=== PATIENT | female | born 1960 | race Caucasian/White ===

== ENCOUNTER 2017-10-11 06:32 | Emergency (ER) | payer OTHER ==
[~2017-10-11] VITALS: Ht 172.7 cm; Wt 63.5 kg
[~2017-10-11 06:32] MED LIST: ALPR0.5T3 PO; CITA20TA4 PO; ESTR2TAB PO
[2017-10-11 06:33] VITALS: BP 177/84; PULSE 104; RESP 16; TEMP 98.2; O2SAT 98
--- NOTE | 2017-10-11 07:26 | PD ---
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 Patient states she believes it was wet on the stairs which caused her to lose her balance and slipped. Patient states she did not hit her head or have loss of consciousness. She did land on her backside, with pain to the upper middle buttocks, and lumbar and lower thoracic spine. She denies weakness, tingling, or radicular pain. Her pain is currently 6 out of 10. She has no other complaints. She is allergic to medroxyprogesterone. PFSH Past Medical History Blood Disorders: No Depression: Yes Cancer: Yes (ENDOMETRIAL) Cardiovascular Problems: No Endocrine: No Gastrointestinal Disorders: No Genitourinary: No Immune Disorder: No Musculoskeletal: No Neurologic: No Psychiatric: No Reproductive: No Respiratory: No Immunizations Current: Yes Radiation Therapy: Yes (hx) Tetanus Vaccination: < 5 Years Influenza Vaccination: Yes Past Surgical History AICD: No Appendectomy: Yes Arteriovenous Shunt: No Gynecologic Surgery: Yes (ENDOMETRIAL [place] FOLLOWED W RADIATION) Hysterectomy: Yes Insulin Pump: No Joint Replacement: No Pacemaker: No Other Surgery: No Social History Alcohol Use: Yes (socially) Tobacco Use: No Substance Use: No Allergies-Medications (Allergen,Severity, Reaction): Coded Allergies: medroxyprogesterone (Unverified Allergy, Severe, 04/09/17) Reported Meds & Prescriptions Reported Meds & Active Scripts Active Reported Estradiol 2 Mg Tab 2 Mg PO Alprazolam 0.5 Mg Tab 0.5 Mg PO BID Citalopram Hydrobromide 20 Mg Tab 20 Mg PO DAILY Review of Systems Except as stated in HPI: all other systems reviewed are Neg General / Constitutional: No: Fever Eyes: No: Visual changes HENT: No: Headaches Cardiovascular: No: Chest Pain or Discomfort Respiratory: No: Shortness of Breath Gastrointestinal: No: Abdominal Pain Genitourinary: No: Dysuria Musculoskeletal: Positive: Myalgias, Limited ROM, Pain Skin: No Rash Neurologic: No: Weakness Psychiatric: No: Depression Endocrine: No: Polydipsia Hematologic/Lymphatic: No: Easy Bruising Physical Exam Narrative GENERAL: She appears in mild distress. SKIN: Warm and dry. Normal color. Normal turgor. There is bruising along the central upper lumbar spine without abrasion or open wound. HEAD: Atraumatic. Normocephalic. EYES: Pupils equal and round. No scleral icterus. No injection or drainage. ENT: No nasal bleeding or discharge. Mucous membranes pink and moist. Pharynx is clear. Airway is patent NECK: Trachea midline. No bony tenderness or step-off. Range of motion is full and supple. CARDIOVASCULAR: Regular rate and rhythm. RESPIRATORY: No accessory muscle use. Clear to auscultation. Breath sounds equal bilaterally. GASTROINTESTINAL: Abdomen soft, non-tender, nondistended. Hepatic and splenic margins not palpable. MUSCULOSKELETAL: Extremities without clubbing, cyanosis, or edema. No obvious deformities. Tenderness with palpation without bony tenderness or obvious signs of fracture. Range of motion is full in both lower extremities. There is negative straight leg raise pain. NEUROLOGICAL: Awake and alert. No obvious cranial nerve deficits. Motor grossly within normal limits. Five out of 5 muscle strength in the arms and legs. Normal speech. PSYCHIATRIC: Appropriate mood and affect; insight and judgment normal. Data Data Last Documented VS Vital Signs Date Time Temp Pulse Resp B/P (MAP) Pulse Ox O2 Delivery O2 Flow Rate FiO2 10/11/17 06:33 98.2 104 16 177/84 (115) 98 Room Air Orders Orders Ibuprofen (Motrin) (10/11/17 07:30) [facility] Medical Decision Making Medical Screen Exam Complete: Yes Emergency Medical Condition: Yes Differential Diagnosis Workplace injury. Slip and fall. Contusions. Lumbar sprain. Narrative Course Radiographic imaging is not felt Lortab based on my history and physical. Patient is given ibuprofen 600 mg by mouth now. Work comp able work is filled out. Patient given a prescription for ibuprofen 600 mg 4 times a day when necessary # 40. Patient is to use ice followed by heat as discussed. Patient able return to work without restrictions today. Recommend follow with employee med in one week for clearance. Diagnosis Primary Impression: Work place accident Additional Impression: Fall on stairs Qualified Codes: W10.9XXA - Fall (on) (from) unspecified stairs and steps, initial encounter Referrals: Employ Med call for appointment Patient Instructions: Contusion in Adults (ED), General Instructions Additional Instructions: Radiographic imaging is not felt Lortab based on my history and physical. Patient is given ibuprofen 600 mg by mouth now. Work comp able work is filled out. Patient given a prescription for ibuprofen 600 mg 4 times a day when necessary # 40. Patient is to use ice followed by heat as discussed. Patient able return to work without restrictions today. Recommend follow with employee med in one week for clearance. Med/Other Pt SpecificInfo: Prescription(s) given Disposition: 01 DISCHARGE HOME Condition: Stable Gildardo Kong Oct 11, 2017 07:26
[2017-10-11] MEDS ORDERED: IBUPROFEN 600 MG TAB PO ONE (07:30)
[2017-10-11] MEDS ORDERED: IBUP-232 PO (07:42)
== END 2017-10-11 08:08 | disposition home or self-care (01) ==
LOC: NEPD 06:32
DX: S30.0XXA Contusion of lower back and pelvis, initial encounter (principal); W10.8XXA Fall (on) (from) other stairs and steps, initial encounter; Y92.89 Other specified places as the place of occurrence of the external cause; Y99.0 Civilian activity done for income or pay
CPT/HCPCS: 99283